=== PATIENT | male | born 1965 | race Caucasian/White ===

== ENCOUNTER → 2020-08-23 11:02 | Outpatient (CLI) | payer OTHER, SELFPAY ==
[2020-08-23 13:13] LABS: COVID19 -Nasal RAPID Negative (Negative)
== END ==
PROVIDERS: Visit Provider Physician Assistant
DX: Z20.822 Contact with and (suspected) exposure to COVID-19 (principal)
CPT/HCPCS: 87635

== ENCOUNTER 2020-08-25 12:26 | Day surgery (SDC) | payer OTHER, SELFPAY ==
--- NOTE | 2020-08-25 | PATH_ITS ---
[facility] Accession Number: [id number] . 01 Material submitted: . PART A: ileum - TERMINAL ILEUM BIOPSY PART B: cecum - CECUM PART C: colon - ASCENDING COLON PART D: colon - ASCENDING COLON POLYP PART E: colon - TRANSVERSE COLON PART F: colon - TRANSVERSE POLYP PART G: colon - DESCENDING COLON SPECIMENS PART H: sigmoid colon - SIGMOID COLON PART I: rectum - RECTAL BIOPSIES . 02 Diagnosis: A. Terminal Ileum, Biopsy: Small bowel mucosa with no significant diagnostic abnormality. Negative for active inflammation, dysplasia and malignancy. . B, C. Cecum, Ascending Colon, Biopsies: Minimally active colitis with minimal distortion of the crypt architecture. Please see comment. Negative for granulomas, dysplasia and malignancy. . D. Ascending Colon, Polyp, Biopsy: Tubular adenoma in three of five fragments. . E. Transverse Colon, Biopsy: Minimally active colitis with reactive epithelial changes. Please see comment. Negative for granulomas, dysplasia and malignancy. . F. Transverse Colon, Polyp, Biopsy: Multiple fragments consistent with inflammatory polyp. Negative for dysplasia and malignancy. . G. Descending Colon, Biopsies: Colonic mucosa with mild distortion of the crypt architecture without active inflammation. Please see comment. Negative for granulomas, dysplasia and malignancy. . H-I. Sigmoid Colon, Rectum, Biopsies: Mildly active colitis with associated distortion of the crypt architecture. Please see comment. Negative for granulomas, dysplasia and malignancy. [facility] 08/30/2020 [facility] Local . 02 Comment: B-E,G-I. No obvious viral cytopathic effects or parasitic organisms are identified. Most of the biopsies show minimal to mild neutrophilic activity. Occasional branched crypt architecture and minimally increased plasma cells and lymphocytes in the lamina propria is suggestive of chronic inflammatory changes. The overall morphologic impression raises a differential diagnosis of infection, medication-related mucosal injury, and idiopathic inflammatory bowel disease. . 02 Electronically signed: . Melissa Coreas MD, Pathologist NPI- [id number] . 01 Gross description: . Part A: TERMINAL ILEUM BIOPSY: Received in formalin are 2 fragment(s) of campbell, soft tissue measuring 0.2 x 0.2 x 0.2 cm to 0.3 x 0.2 x 0.2 cm submitted entirely in 1 cassette(s) Part B: CECUM: Received in formalin are 3 fragment(s) of campbell, soft tissue measuring 0.1 x 0.1 x 0.1 cm to 0.2 x 0.2 x 0.2 cm submitted entirely in 1 cassette(s) Part C: ASCENDING COLON: Received in formalin are 4 fragment(s) of campbell, soft tissue measuring 0.1 x 0.1 x 0.1 cm to 0.3 x 0.2 x 0.2 cm submitted entirely in 1 cassette(s) Part D: ASCENDING COLON POLYP: Received in formalin are multiple fragment(s) of campbell, soft tissue measuring 0.1 x 0.1 x 0.1 cm to 0.5 x 0.5 x 0.5 cm submitted entirely in 1 cassette(s) Part E: TRANSVERSE COLON: Received in formalin are 4 fragment(s) of campbell, soft tissue measuring 0.1 x 0.1 x 0.1 cm to 0.3 x 0.2 x 0.2 cm submitted entirely in 1 cassette(s) Part F: TRANSVERSE POLYP: Received in formalin are multiple fragment(s) of campbell, soft tissue measuring 0.1 x 0.1 x 0.1 cm to 0.6 x 0.5 x 0.4 cm submitted entirely in 1 cassette(s) Part G: DESCENDING COLON SPECIMENS: Received in formalin are 4 fragment(s) of campbell, soft tissue measuring 0.1 x 0.1 x 0.1 cm to 0.3 x 0.2 x 0.2 cm submitted entirely in 1 cassette(s) Part H: SIGMOID COLON: Received in formalin are multiple fragment(s) of campbell, soft tissue measuring 0.1 x 0.1 x 0.1 cm to 0.4 x 0.3 x 0.2 cm submitted entirely in 1 cassette(s) Part I: RECTAL BIOPSIES: Received in formalin are 4 fragment(s) of campbell, soft tissue measuring 0.2 x 0.2 x 0.1 cm to 0.4 x 0.3 x 0.2 cm submitted entirely in 1 cassette(s) /[facility] 08/26/[address] [place] [address] . 02 Pathologist provided ICD-10: K92.1, R19.7 . 02 CPT . 585358, 208320, 875946, 071397, 247510, 940993, 134778, [id number], [id number] Performed at: 01 [facility] [address] [id number] MD Enzo Scott MD Phone: [phone] Performed at: [facility] [address] [place], [place] [id number] MD Melissa Coreas MD Phone: [phone]
--- NOTE | 2020-08-25 09:02 | P.HP_ITS ---
History of Present Illness History of Present Illness Date Patient Seen: 08/25/20 Chief complaint: SDC Narrative: 55-year-old male seen at our office on 08/05/2020 for diarrhea and hematochezia and is here for further evaluation Patient History Medical History (Updated 09/30/19 @ 09:37 by Rosario Etienne PA-C) Sinusitis Meds Home Medications and Allergies Home Medications Medication Instructions Recorded Confirmed Type No Known Home Medications 09/30/19 09/30/19 History Allergies Allergy/AdvReac Type Severity Reaction Status Date / Time No Known Drug Allergies Allergy Unverified 09/30/19 09:26 Exam Narrative Exam Narrative: General: Patient is well developed, not in apparent distress Cardiovascular: Regular rate and rhythm, no murmurs, rubs, or gallops; no evidence of edema; no palpable abdominal aortic aneurysm Gastrointestinal: Normoactive bowel sounds, soft, nontender, nondistended, no rebound tenderness, no hepatosplenomegaly, no evidence of hernia Assessment & Plan Assessment & Plan narrative: 55-year-old male here for further evaluation of diarrhea and hematochezia Regarding the procedure(s), the risks and potential complications, benefits, and alternatives (including not doing the procedure) were discussed with the patient. The risks include but are not limited to bleeding, splenic injury, inf ection, perforation which may require surgical intervention, missed lesions, and adverse reactions to sedative medicines. After a question and answer period, the patient agreed to proceed with the procedure(s) and gives informed consent.
[2020-08-25] MEDS: SODIUM CHLORIDE 0.9% 1,000 ML 70 ML IV (13:15)
[2020-08-25 13:17] VITALS: BP 119/71; PULSE 119; RESP 16; TEMP 36.2; O2SAT 100; BMI 29.8
[2020-08-25] MEDS: MIDAZOLAM 5 MG/5 ML VIAL IV (13:27)
[2020-08-25] MEDS: fentaNYL 250 MCG/5 ML INJ IV (13:53)
--- NOTE | 2020-08-25 14:00 | P.OP.ENDO_ITS ---
Operative Date/Time/Diagnoses Date of procedure: 08/25/20 Procedure Notes Procedure in detail: Surgeon: Naman Horton MD Procedure: Colonoscopy with snare polypectomy, biopsies Preoperative diagnosis: Rectal bleeding Postoperative diagnosis: Pancolitis status post biopsy; colon polyps status post polypectomy; pandiverticulosis Medications: Conscious sedation using 8 mg IV of Midazolam and 150 mcg IV of Fentanyl Preanesthesia Assessment An H and P was performed/updated and the Px?s ASA class is 2. The procedure was discussed in detail with the patient. The potential risks and complications including infection, bleeding, missed lesions, perforation, need for surgery in case of perforation, prolonged hospital stay, and were explained. A brief question and answer period was allotted and once all questions were answered, informed consent was obtained. The patient was brought back to the procedure room and placed on standard monitoring. The patient?s vital signs were monitored continuously throughout the entire procedure. Prior to starting, a timeout was performed to confirm the patient?s identity, allergies, medications, and procedure. Procedure in detail The patient was placed in left lateral decubitus position and once adequate sedation was obtained a WILY was performed. The digital rectal examination did not reveal any palpable lesions. The tip of the colonoscope was placed in the anal canal and advanced without difficulty all the way to the cecum which was identified by the appendiceal orifice and the ileocecal valve. The terminal ileum was intubated distance of 5 cm from the ileocecal valve and there were no mucosal abnormalities. Biopsies were taken from this area with minimal bleeding. The colonoscope was brought back to the cecum and careful examination of all le of the colon was performed with irrigation of any residual stool. The colonic mucosa appeared inflamed throughout the entire colon most prominently in the transverse colon, descending colon, sigmoid colon, and rectum; biopsies were taken from multiple sections of the colon with minimal bleeding. In the ascending colon a 5 mm semi pedunculated polyp was removed by means of cold snare. Resection and retrieval was complete with minimal bleeding In the transverse colon a 10 mm semi pedunculated polyp was removed by means of cold snare. Resection and retrieval was complete with minimal bleeding There was note of multiple medium-sized diverticula throughout the entire colon Retroflexion was performed in the rectum which revealed inflammation of the colon mucosa up until the anal verge The patient tolerated the procedure well and will be brought back to the recovery area to be discharged once criteria are met. The prep was judged to be good and adequate to identify polyps less than 5 mm. The withdrawal time was 19 minutes. The total physician intraservice time was 30 minutes. Complications There were no complications and estimated blood loss was minimal. Recommendations: Resume previous diet Mesalamine (Lialda) 4.8 g daily (we will send your pharmacy at [facility]) Mesalamine (Rowasa) 4 g enema at bedtime (we will send your pharmacy at [facility]) Continue outPx medications Follow up pathology results Repeat colonoscopy in 1 year to assess response to therapy Follow-up at our office ([facility]) in 1 month An emergency contact number was given to the patient for any complications related to the procedure
[2020-08-25 14:04] VITALS: BP 102/75; PULSE 103; RESP 16; TEMP 36.3; O2SAT 99
[2020-08-25 14:09] VITALS: BP 96/63; PULSE 105; RESP 20; O2SAT 100
[2020-08-25 14:14] VITALS: BP 98/61; PULSE 105; RESP 23; TEMP 36.6; O2SAT 100
[2020-08-25 14:20] VITALS: BP 96/69; PULSE 103; RESP 18; TEMP 36.6; O2SAT 100
== END 2020-08-25 14:44 | disposition home or self-care (01) ==
PROVIDERS: Referring Provider Internal Medicine Gastroenterology; Visit Provider Internal Medicine Gastroenterology
PROC: 0DJD8ZZ Inspection of Lower Intestinal Tract, Via Natural or Artificial Opening Endoscopic (ICD-10-PCS; CPT 45378; principal; 2020-08-25 13:30)
DX: K52.9 Noninfective gastroenteritis and colitis, unspecified (principal); K57.30 Diverticulosis of large intestine without perforation or abscess without bleeding; D12.2 Benign neoplasm of ascending colon
CPT/HCPCS: 45385; J2250; J3010

== ENCOUNTER → 2022-01-09 07:34 | Outpatient (CLI) | payer OTHER, SELFPAY ==
--- NOTE | 2022-01-09 | DI.ECHO.S_ITS ---
Version: 1 Study ID: [id number] [place] [address] Name: CHARLIE DOWD Study Date: 01/09/2022, 8: 27 AM : 1965 BP: 145 / 106 mmHg Gender: Male Height: 76 in Age: 56 Years Weight: 280 lb BSA: 2.6 mA? Ordering: RICHARDSON CERON Referring: RICHARDSON CERON Clinician: Josselyn Puri Reason For Study: CARDIAC MURMUR History: Summary Statements Indeterminate tachycardic rhythm. Suspect afib versus atrial flutter with rapid ventricular response. Heart rate is 112-115 bpm. Normal LV size and wall thickness. There is basal inferior and mid inferior severe hypokinesis. Mild global hypokinesis all other visualized segments with ejection fraction of 35-40%. Moderate left atrial enlargement and mild RV dilation with mildly reduced wall thickness. Mitral valve leaflets are mildly thickened and calcified with severe associated mitral regurgitation. Aortic valve leaflets are moderately thickened and calcified especially the right coronary leaflet which has a discrete nodular calcification at the tip. There is mildly reduced aortic valve leaflet excursion. There is mild associated aortic stenosis with peak velocity of 2.1 m/s and mean gradient of 11 mmHg. Procedure: A two-dimensional transthoracic echocardiogram with color flow and Doppler was performed. The study quality was technically adequate. There is no prior echocardiogram noted for this patient. Left Ventricle: The left ventricle is normal in size. There is normal left ventricular wall thickness. The ejection fraction is estimated to be 35-40%. Right Ventricle: The right ventricle is mildly dilated. Right ventricular systolic function is mildly reduced. Atria: The left atrium is moderately dilated. Right atrial size is normal. There is no Doppler evidence for an interatrial shunt. Mitral Valve: The mitral valve leaflets are mildly calcified. There is mild mitral annular calcification. There is severe mitral regurgitation. Aortic Valve: The aortic valve is moderately calcified. The peak aortic velocity is 2.2 m/sec. The aortic valve mean gradient is 13 mmHg. The calculated aortic valve area is 1.2 cm2. There is trace aortic regurgitation. Tricuspid Valve: The tricuspid valve is not well visualized, but is grossly normal. There is trace tricuspid regurgitation. Pulmonic Valve: The pulmonic valve leaflets are thin and pliable; valve motion is normal. There is no pulmonic valvular regurgitation. Great Vessels: The aortic root is normal size. The dimensions of the ascending aorta are normal. The IVC is dilated (diameter is greater than 2.1 cm) yet it collapses greater than 50% with a sniff. This suggests a right atrial pressure of 8 mm Hg. Pericardium/ Pleura: There is no pericardial effusion. There is no pleural effusion. 2D and M-Mode Measurements and Calculations LVIDd: 5.8 cm LVOT diam: 2.13 cm LVIDs: 4.7 cm Ao root diam: 3.7 cm IVSd: 0.86 cm asc Aorta Diam: 3.8 cm LVPWd: 0.84 cm Ao Arch Diam (Prox Trans): 3.2 cm LV montoya. diameter/BSA (cm/m^2): 2.28 LV sys. diameter/BSA (cm/m^2): 1.85 RVD1 (basal): 4.4 cm IVC diam: 2.12 cm TAPSE: 1.35 cm LA A4 area: 20.4 athletic training internship? RA area: 16.3 athletic training internship? LA A2 area: 27.9 athletic training internship? RA long axis: 5.3 cm LA length (vol): 5.5 cm RA vol: 43.1 ml LA vol: 87.9 ml RA : 16.9 ml/mA? LA vol index: 34.4 ml/mA? Doppler Measurements and Calculations Ao V2 max: 223.0 cm/sec LVOT Max Dmitri: 76.9 cm/sec Ao V2 mean: 155.8 cm/sec LV V1 max P.37 mmHg Ao V2 VTI: 38.7 cm LV V1 VTI: 15.4 cm Ao max P.0 mmHg Ao mean P.9 mmHg NICHOLE(I,D): 1.42 athletic training internship? NICHOLE(V,D): 1.23 athletic training internship? NICHOLE indexed to BSA (cm^2/m^2): 0.56 sev ratio: 0.40 MV E max dmitri: 142.1 cm/sec MV dec time: 0.08 sec MV A max dmitri: 1.61 cm/sec MV E/A: 88.3 Med Peak E' Dmitri: 13.0 cm/sec Lat Peak E' Dmitri: 16.4 cm/sec E/e' average: 9.8 PA V2 max: 81.5 cm/sec PA mean P.22 mmHg MR ERO: 0.17 athletic training internship? MR PISA: 2.6 athletic training internship? Electronically signed by: Kasey Mclean M.D. 01/10/2022, 8: 37 AM
== END ==
PROVIDERS: PCP Internal Medicine; Referring Provider Internal Medicine; Visit Provider Internal Medicine
DX: I34.0 Nonrheumatic mitral (valve) insufficiency (principal); R01.1 Cardiac murmur, unspecified
CPT/HCPCS: 93306